=== PATIENT | male | born 1985 | race Caucasian/White ===

== ENCOUNTER 2018-03-24 15:58 | Emergency (ER) | END 2018-03-24 18:53 | disposition home or self-care (01) ==

== ENCOUNTER 2018-12-07 09:34 | Emergency (ER) | payer OTHER ==
[~2018-12-07] VITALS: Ht 172.7 cm; Wt 60.0 kg
[~2018-12-07 09:34] MED LIST: ACET500C5 PO; AMOX1TAB9 PO; AMOX500C2 PO; FLUT9.9S NASAL; IBUP-1542 PO; LORA10CA PO
[2018-12-07 09:42] VITALS: BP 155/88; PULSE 84; RESP 18; Ht 172.7 cm; Wt 60.0 kg
[2018-12-07] MEDS ORDERED: KETOROLAC 30 MG INJ IM STA (10:49)
== END 2018-12-07 11:12 | disposition home or self-care (01) ==
LOC: FTE 09:34
DX: K02.9 Dental caries, unspecified (principal); J45.909 Unspecified asthma, uncomplicated
CPT/HCPCS: J1885; Z7502; 99283